=== PATIENT | male | born 1975 | race Caucasian/White ===

== ENCOUNTER → 2022-03-28 08:16 | Outpatient (BNVA) | payer OTHER, SELFPAY | PROVIDERS: Visit Provider Surgery | DX: Z12.11 Encounter for screening for malignant neoplasm of colon (principal) | CPT/HCPCS: 99203 ==

== ENCOUNTER 2022-06-04 08:29 | Day surgery (SDC) | payer OTHER, SELFPAY ==
[2022-06-02 12:49] VITALS: BMI 28.5
[2022-06-04 08:48] VITALS: BP 139/96; PULSE 101; RESP 18; TEMP 36.1; O2SAT 98
--- NOTE | 2022-06-04 09:03 | P.HP_ITS ---
Providers/Chief Complaint Primary Care Provider: Annabelle Genao MD Chief Complaint: encounter for screening for malignant History of Present Illness Carlos Pak is a 46 year old male who presents for a screening colonoscopy Medications/Allergies Home Medications Medication Instructions Recorded Confirmed Last Taken Type atorvastatin 20 mg tablet 20 mg PO DAILY 03/28/22 06/04/22 06/03/22 History lisinopril 10 1 tab PO DAILY 03/28/22 06/04/22 06/04/22 06:30 History mg-hydrochlorothiazide 12.5 mg tablet phenytoin sodium extended 100 mg 100 mg PO BID 03/28/22 06/04/22 06/04/22 06:30 History capsule Allergies Allergy/AdvReac Type Severity Reaction Status Date / Time No Known Allergies Allergy Unverified 06/04/22 08:44 PFSH Acute PFSH: Medical History Allergic rhinitis Essential hypertension High cholesterol Surgical History No significant past surgical history Family History Other Cancer Diabetes Social History Smoking and tobacco status: never smoked Vitals/I&O/Wt Last Vital Signs Temp 97.0 F L 06/04/22 08:48 Pulse 101 H 06/04/22 08:48 Resp 18 06/04/22 08:48 BP 139/96 06/04/22 08:48 Pulse Ox 98 06/04/22 08:48 Weight last 48 hrs Weight 205 lb A&P Assessment and plan (1) Colon cancer screening: Plan Colonoscopy Attestations Medical Necessity Statement*: Home Coding Level of Care Code 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
--- NOTE | 2022-06-04 09:13 | P.ANESASSM_ITS ---
Pre-Anesthetic Assessment Height/Weight: Height 1.8 m Weight 92.986 kg Temp Pulse Resp BP Pulse Ox 97.0 F L 101 H 18 139/96 98 06/04/22 08:48 06/04/22 08:48 06/04/22 08:48 06/04/22 08:48 06/04/22 08:48 Preop Diagnosis: screening Operation Date: 06/04/22 10:00 Proposed Procedures p Colonoscopy 27769,Z12.11(Not Applicable) - Davie Guan DO Familial anesthetic complications: none Was Beta Elle taken within 24 hours: N/A Was Clonidine taken within 24 hours: N/A Last intake: Intake Last Liquid Date 06/03/22 Last Liquid Time 21:00 Last Solid Date 06/02/22 Last Intake: 21:00 Social No alcohol and No tobacco Exam alert, oriented x 3, clear to auscultation bilaterally and regular rate & rhythm Airway Submandibular: within normal limits Cervical ROM: within normal limits Mallampati: Class I Dentition: full Pulmonary None reported CV/HEM Hypertension None reported Hepatic None reported GI None reported Metabolic None reported Musc/skel Lower Back Pain and Scoliosis Neuropsych Seizure (last 1995) Anesthetic Plan ASA status: 2 Anesthesia: MAC Medications/Allergies Home Medications Medication Instructions Recorded Confirmed Last Taken Type atorvastatin 20 mg tablet 20 mg PO DAILY 03/28/22 06/04/22 06/03/22 History lisinopril 10 1 tab PO DAILY 03/28/22 06/04/22 06/04/22 06:30 History mg-hydrochlorothiazide 12.5 mg tablet phenytoin sodium extended 100 mg 100 mg PO BID 03/28/22 06/04/22 06/04/22 06:30 History capsule Allergies Allergy/AdvReac Type Severity Reaction Status Date / Time No Known Allergies Allergy Unverified 06/04/22 08:44 [facility] Anesthesia Medical History Allergic rhinitis Essential hypertension High cholesterol Surgical History No significant past surgical history Family History Other Cancer Diabetes Social History Smoking and tobacco status: never smoked Data Anesthesia Cardiac Studies: No Data to Display
[2022-06-04 09:57] VITALS: BP 118/81; PULSE 75; RESP 16; TEMP 36.1; O2SAT 100
[2022-06-04 10:10] VITALS: BP 129/89; PULSE 67; RESP 16; O2SAT 98
--- NOTE | 2022-06-04 10:10 | ANE.PACU2 ---
Inpatient post-anesthesia follow up: Airway intact: Yes Vital signs: Temperature 97 F Pulse Rate 75 Respiratory Rate 16 Blood Pressure 118/81 Pulse Oximetry 100 Oxygen Delivery Me thod Room Air Oxygen Flow Rate Fraction of Inspir ed Oxygen Hydration adequate: Yes Nausea and vomiting: No Pain level: 1 Mental status: Baseline
[2022-06-04] MEDS: sodium chloride 0.9% 1,000 ML 30 ML IV (10:17)
== END 2022-06-04 10:28 | disposition home or self-care (01) ==
PROVIDERS: PCP Family Medicine; Visit Provider Surgery
PROC: 0DJD8ZZ Inspection of Lower Intestinal Tract, Via Natural or Artificial Opening Endoscopic (ICD-10-PCS; CPT 45378; principal; 2022-06-04 10:00)
DX: Z12.11 Encounter for screening for malignant neoplasm of colon (principal); I10 Essential (primary) hypertension
CPT/HCPCS: 45378; J2704; J7030